=== PATIENT | male | born 1970 | race Caucasian/White ===

== ENCOUNTER 2016-10-22 10:36 | Emergency (ER) | payer OTHER ==
[~2016-10-22] VITALS: Ht 193 cm; Wt 71.2 kg
[~2016-10-22 10:36] MED LIST changes: -OXYC1TAB3 PO
[2016-10-22 10:40] VITALS: TEMP 37; Ht 193 cm; Wt 71.2 kg
[2016-10-22] MEDS ORDERED: MoRPHine SULFATE 4 MG/ML 1 ML CARP\\VIAL IV STA (11:06)
[2016-10-22] MEDS ORDERED: ONDANSETRON INJ 2 MG/ML 2 ML VIAL IV STA (11:06)
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
[2016-10-22 11:46] LABS: BASO % 0.6 %; BASO ABS # 0.05 K/uL (0-0.2); COMPLETE YES; EOS % 3.1 %; HEMATOCRIT 44.5 % (42-52); IG% 0.2 %; LYMPH % 17.1 %; LYMPH ABS # 1.42 K/uL (1.2-3.4); MEAN CELL VOLUME 89.9 fL (80-100); MEAN CORPUSCULAR HEMOGLOBIN 31.7 pg (25-34); MEAN CORPUSCULAR HGB CONC 35.3 g/dl (32-36); MEAN PLATELET VOLUME 10.3 fL (7.4-10.4); MONO % 5.4 %; NEUT % 73.6 %; PLATELET COUNT 205 K/uL (130-400); RED BLOOD COUNT 4.95 M/uL (4.7-6.1); WHITE BLOOD COUNT 8.32 K/uL (4.8-10.8)
[2016-10-22 12:02] LABS: BUN/CREATININE RATIO 12.1 (10-20); CALCIUM 9.3 mg/dl (8.5-10.1); CREATININE 0.85 mg/dl (0.60-1.40); POTASSIUM 4.6 mmol/L (3.5-5.1)
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
[2016-10-22 12:05] LABS: ALB/GLOB RATIO 1.3 (0.9-2)
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
[2016-10-22] MEDS ORDERED: KETOROLAC TROMETHAMINE 15 MG/ML VIAL IV STA (12:19)
[2016-10-22] MEDS ORDERED: KETOROLAC TROMETHAMINE 30 MG/ML VIAL ONE (12:24)
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
[2016-10-22 13:06] LABS: URINE APPEARANCE CLEAR (CLEAR); URINE BILIRUBIN NEG (NEG); URINE COLOR YELLOW; URINE NITRITE NEG (NEG); URINE SPECIFIC GRAVITY 1.003 (1.000-1.030); UROBILINOGEN NEG (NEG); ZZUR CULT IF INDIC CLEAN CATCH NO
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
[2016-10-22 13:07] LABS: MANUAL MICROSCOPIC REQUIRED? NO; REVIEW REQ? NO
[2016-10-22] MEDS ORDERED: OXYC1TAB3 PO (13:28)
[2016-10-22 14:11] VITALS: BP 124/70; PULSE 84; O2SAT 99
== END 2016-10-22 14:15 | disposition home or self-care (01) ==
LOC: C.EDB 10:37 → C.EDC 14:15
DX: S52.202A Unspecified fracture of shaft of left ulna, initial encounter for closed fracture (principal); S09.90XA Unspecified injury of head, initial encounter; M54.2 Cervicalgia; V57.5XXA Driver of pick-up truck or van injured in collision with fixed or stationary object in traffic accident, initial encounter; Y92.488 Other paved roadways as the place of occurrence of the external cause; F17.210 Nicotine dependence, cigarettes, uncomplicated

== ENCOUNTER → 2016-10-22 | Outpatient (CLI) | payer OTHER ==
[~2016-10-22] MED LIST: HOMA5SOL2 OPB; OXYC1TAB3 PO
== END | disposition home or self-care (01) ==
LOC: C.LAB 01:44
DX: Z02.83 Encounter for blood-alcohol and blood-drug test (principal)

== ENCOUNTER → 2016-10-24 | Outpatient (CLI) | payer OTHER ==
[~2016-10-24] MED LIST changes: -HOMA5SOL2 OPB; +OXYC1TAB3 PO
== END | disposition home or self-care (01) ==
LOC: C.RDSM 13:56
PROVIDERS: ATTEND Orthopaedic Surgery Sports Medicine
DX: S52.692A Other fracture of lower end of left ulna, initial encounter for closed fracture (principal); X58.XXXA Exposure to other specified factors, initial encounter

== ENCOUNTER → 2016-11-09 | Outpatient (CLI) | payer OTHER ==
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
== END | disposition home or self-care (01) ==
LOC: C.RDSM 10:10
PROVIDERS: ATTEND Physical Medicine & Rehabilitation Sports Medicine
DX: M25.512 Pain in left shoulder (principal); S52.502D Unspecified fracture of the lower end of left radius, subsequent encounter for closed fracture with routine healing; S52.602D Unspecified fracture of lower end of left ulna, subsequent encounter for closed fracture with routine healing; X58.XXXD Exposure to other specified factors, subsequent encounter

== ENCOUNTER → 2016-12-01 | Outpatient (CLI) | payer OTHER ==
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
== END | disposition home or self-care (01) ==
LOC: C.RDSM 10:45
PROVIDERS: ATTEND Physician Assistant
DX: S52.615D Nondisplaced fracture of left ulna styloid process, subsequent encounter for closed fracture with routine healing (principal); S52.502D Unspecified fracture of the lower end of left radius, subsequent encounter for closed fracture with routine healing; X58.XXXD Exposure to other specified factors, subsequent encounter

== ENCOUNTER 2017-10-06 16:16 | Emergency (ER) | payer SELFPAY ==
[~2017-10-06] VITALS: Ht 193 cm; Wt 75.2 kg
[2017-10-06 16:22] VITALS: TEMP 36.7; Ht 193 cm; Wt 75.2 kg
[2017-10-06] MEDS ORDERED: OXYCODONE HCL IR 5 MG TAB (IMMEDIATE RELEASE) PO STA (16:48)
[2017-10-06] MEDS ORDERED: ALBUTEROL HFA 8 GM INHALER INH STA (16:51)
[2017-10-06] MEDS ORDERED: HYDR5SYP11 PO (16:56)
[2017-10-06] MEDS ORDERED: AZITTAB PO ×2 (16:56→17:00)
[2017-10-06 17:07] VITALS: BP 135/82; PULSE 69; O2SAT 95
--- NOTE | 2017-10-06 19:50 | EMERGENCY ROOM VISIT NOTE ---
History First contact with patient: 16:24 Chief Complaint: FLU LIKE SX Stated Complaint: POSSIBLE FLU History of Present Illness The patient is a 47 year old male who presents to the Emergency Room with complaints of a worsening productive cough, fevers and chills. The patient reports that he developed a cold 1 week ago with nonproductive cough, sore throat, headache, nausea, myalgias and runny nose. His had symptoms seem to be improving, but is having worsening cough. The patient denies any cardiopulmonary history. He denies any shortness of breath or chest pain. He has been taking Mucinex and cough drops without any significant relief. He reports that he currently does not have insurance or family doctor. Review of Systems 10 system review was performed and was negative except for pertinent positives and negatives as indicated in history of present illness Past Medical/Surgical History Medical Problems: (1) Chronic Sinusitis Nos (2) Suicidal Ideation (3) Tobacco Use Disorder (4) Umbilical Hernia Surgical Problems: (1) History of hernia repair Family History Diabetes mellitus Heart disease Hypertension Social History Smoking Status: Current Every Day Smoker Alcohol Use: heavy Drug Use: none Marital Status: in relationship Housing Status: lives with significant other Occupation Status: employed Current/Historical Medications Scheduled Azithromycin (Zithromax Z-Leo), 0 PO UD Scheduled PRN Hydrocodone W/ Homatropine (Hycodan 5/1.5MG 5 Ml), 5-10 ML PO Q4H PRN for Cough Physical Exam Vital Signs Date Time Temp Pulse Resp B/P (MAP) Pulse Ox O2 Delivery O2 Flow Rate FiO2 10/06/17 17:07 69 18 135/82 95 18 16:22 36.7 75 16 125/90 96 Room Air Physical Exam CONSTITUTIONAL: Healthy and well nourished. Alert and oriented X 3 with positive affect. Patient has a mild productive cough. The patient does not appear acutely or toxic. HEENT: Normocephalic, atraumatic. Pupils equal, round and reactive. Rhinorrhea is noted. Mild tenderness to palpation and percussion of the frontal and maxillary sinuses. No conjunctival injection noted. Examination of the year shows TM bulging without air-fluid levels, erythema or serous/ purulent effusion. OROPHARYNX: Minimal posterior pharyngeal erythema without postnasal drip or tonsillar hypertrophy. NECK: Full active range of motion without discomfort. LYMPHATICS: No cervical chain adenopathy noted. RESPIRATORY: Clear to auscultation bilaterally with no wheezing, crackles, rhonchi or stridor. CARDIOVASCULAR: Regular rate and rhythm with no murmurs, rubs or gallops. GASTROINTESTINAL: Bowel sounds present in all quadrants. MUSCULOSKELETAL: Full range of motion of all joints without discomfort. INTEGUMENTARY: No rash or other significant dermatologic conditions noted. NEUROLOGIC: No focal neurologic deficits noted. Medical Decision & Procedures Medications Administered Medications (Trade) Dose Ordered Sig/Héctor Route Start Time Stop Time Status Last Admin Dose Admin Albuterol (Ventolin Hfa Inhaler) 2 puffs ONE STAT INH 10/06/17 16:51 10/06/17 16:52 DC 10/06/17 17:00 2 PUFFS ED Course Patient history and physical exam were performed. Nurse's notes were reviewed. Vital signs were reviewed and normal. The patient is afebrile with O2 saturation of 96% on room air. He is not tachycardic. The patient reports that he would prefer the cheapest treatment option since he does not have insurance. I did offer to perform a chest x-ray, but the patient declined. The patient will be provided a prescription for Zithromax. A coupon was provided for use at [facility]. The patient was also provided a prescription for Hycodan cough syrup, and dispensed a Ventolin metered-dose inhaler with AeroChamber from the emergency department. The patient was instructed to return for any progressively worsening symptoms. The patient was happy with plan of care, and voiced understanding of all discharge instructions. Medical Decision [place] Drug Monitoring Program Search Results: patient reviewed within database, no issues identified Medication Reconcilliation Current Medication List: was personally reviewed by in Blood Pressure Screening Patient's blood pressure: Normal blood pressure Impression Primary Impression: Acute bronchitis Departure Information Dispostion Home / Self-Care Condition GOOD Prescriptions Azithromycin (ZITHROMAX Z-LEO) 250 Mg Tab 0 PO UD, #1 PKT 2 TABS DAY 1, THEN 1 TAB DAILY FOR 4 DAYS Prov: Rolo Romo PA 10/06/17 Hydrocodone W/ Homatropine (HYCODAN 5/1.5MG 5 ML) 1 Syp Syp 5-10 ML PO Q4H Y for Cough, #200 ML Prov: Rolo Romo PA 10/06/17 Referrals No Doctor, Assigned (PCP) Forms HOME CARE DOCUMENTATION FORM, IMPORTANT VISIT INFORMATION Patient Instructions [facility], ED Upper Resp Infec Abx Tx Additional Instructions Complete Zithromax antibiotics as prescribed. Albuterol 2 puffs every 4 hours for cough. Take Hycodan as prescribed and as needed for worse cough. Remember that this medication make you drowsy and constipated. Return to the emergency department for any progressively worsening symptoms. Problem Qualifiers Primary Impression: Acute bronchitis Bronchitis organism: unspecified organism Qualified Codes: J20.9 - Acute bronchitis, unspecified
== END 2017-10-06 17:08 | disposition home or self-care (01) ==
LOC: C.EDB 16:17 → C.EDD 17:08
DX: J20.9 Acute bronchitis, unspecified (principal); J32.9 Chronic sinusitis, unspecified; F17.200 Nicotine dependence, unspecified, uncomplicated; Z83.3 Family history of diabetes mellitus; Z82.49 Family history of ischemic heart disease and other diseases of the circulatory system